=== PATIENT | male | born 1940 ===

== ENCOUNTER 2017-09-29 08:00 | Inpatient (IN) | payer MEDICARE, MEDICAID ==
[2017-08-02 15:02] VITALS: BMI 27.4
[2017-10-06] MEDS ORDERED: Propofol 10 mg/ml Inj (20 ML) ONE (07:48)
[2017-10-06] MEDS ORDERED: Midazolam 2 MG/2 ML VIAL ONE (07:49)
[2017-10-06] MEDS ORDERED: Lactated Ringer's 1,000 ML IV ONE ×5 (07:55→12:30)
[2017-10-06] MEDS: Bupivacaine-Epi 0.25%-1:200,000 PF Inj ONE ×2 (07:55→08:43)
[2017-10-06] MEDS: Lidocaine 1% Inj (20ml) ONE ×2 (07:55→08:44)
[2017-10-06] MEDS: ceFAZolin IV 2 gm in Dextrose 2 GM/50 ML BAG IVPB ONE ×2 (08:10→08:37)
[2017-10-06] MEDS: metroNIDAZOLE IV 500 mg/100 ml 500 MG/100 ML BAG ONE ×2 (08:20→08:43)
[2017-10-06] MEDS ORDERED: Rocuronium 10 mg/ml (5 ml) ONE (10:13)
[2017-10-06] MEDS ORDERED: Neostigmine Methylsulfate 3mg/3ml Syringe IV ONE (10:13)
[2017-10-06] MEDS ORDERED: Succinylcholine Chloride 20 mg/ml Syr (5 ml) IV ONE (10:13)
--- NOTE | 2017-10-06 13:10 | RAD ---
HISTORY: RULE OUT PNEUMOTHORAX COMPARISON: 08/02/2017 FINDINGS: LUNGS: There is no acute infiltrate. There is band like density at the left base which may reflect atelectasis. PLEURA: There is no definite pneumothorax. However, there is air seen superimposed upon both the right and left cardiac silhouettes. Atypical pneumothorax cannot be entirely excluded. Possible small left pleural effusion. Subcutaneous emphysema seen over left lateral chest wall. Subcutaneous emphysema is seen about the neck bilaterally. CARDIOVASCULAR: There is an endotracheal tube positioned 3.4 cm above the tracheal stephen. A nasogastric tube extends to the left upper quadrant of the abdomen. OSSEOUS STRUCTURES: No significant abnormalities. VISUALIZED UPPER ABDOMEN: Normal. OTHER FINDINGS: None. IMPRESSION: Cannot rule out pneumothorax in an atypical location superimposed upon the right and left cardiac silhouette. No apical pneumothorax. Subcutaneous emphysema over left lateral chest wall and about the neck bilaterally. ET tube and NG tube appear appropriately positioned. Findings were discussed with patient's nurse, SARAH Back, at 1:08 p.m. on 10/06/2017.
[2017-10-06] MEDS ORDERED: HYDROmorphone 1 mg/ml ISec IVP PRN (14:37)
--- NOTE | 2017-10-06 16:23 | PCM.SURG1 ---
Surgeon's Initial Post Op Note - Surgeon's Notes Surgeon: MD Thuy. MD Isi Business Machine Operator: PREMA Jones Type of Anesthesia: General Endo Pre-Operative Diagnosis: Hiatal hernia Operative Findings: Hiatal hernia Post-Operative Diagnosis: Hiatal hernia Operation Performed: Robotic hiatal hernia repair with alloderm. Gastropexy. Tony Fundoplication. Specimen/Specimens Removed: Hernia sac Estimated Blood Loss: EBL {In ML}: 100 Blood Products Given: N/A Drains Used: Marcus Post-Op Condition: Good Date of Surgery/Procedure: 10/06/17 Time of Surgery/Procedure: 07:55
[2017-10-06] MEDS ORDERED: Acetaminophen IV 1,000 MG in Premixed IV 1 EA IV PRN (17:30)
[2017-10-07 06:41] LABS: BASO % 0.1 % (0.0-2.0); HEMATOCRIT 30.1 % (35.0-51.0); LYMPH # 0.8 K/uL (1.0-4.3); LYMPH % 7.9 % (20.0-40.0); MEAN CELL VOLUME 86.7 fL (80.0-94.0); MEAN CORPUSCULAR HEMOGLOBIN 28.3 pg (27.0-31.0); MEAN CORPUSCULAR HGB CONC 32.7 g/dL (33.0-37.0); MEAN PLATELET VOLUME 11.1 fL (7.2-11.7); MONO # 0.3 K/uL (0.0-0.8); PLATELET COUNT 126 K/uL (130-400); RED CELL DISTRIBUTION WIDTH 14.6 % (11.5-14.5); WHITE BLOOD COUNT 10.5 K/uL (4.8-10.8)
[2017-10-07 08:12] LABS: ALB/GLOB RATIO 1.2 (1.0-2.1); ALKALINE PHOSPHATASE 43 U/L (38-126); ALT/SGPT 454 U/L (21-72); AST/SGOT 526 U/L (17-59); BLOOD UREA NITROGEN 14 mg/dL (9-20); CALCIUM 7.6 mg/dl (8.6-10.4); CARBON DIOXIDE 26 mmol/L (22-30); CHLORIDE 100 mmol/L (98-107); GFR AFRICAN-AMERICAN > 60; GLUCOSE,RANDOM 120 mg/dL (75-110); POTASSIUM 3.9 mmol/L (3.6-5.2); SODIUM 136 mmol/L (132-148); TOTAL PROTEIN 5.4 g/dL (6.3-8.3)
[2017-10-07 08:51] LABS: NEUTROPHIL 87 % (50-75); TOTAL CELLS COUNTED 100
[2017-10-07] MEDS: Enoxaparin 40 mg Syringe SC SCH (09:28)
[2017-10-07] MEDS: Lactated Ringer's 1,000 ML IV SCH ×4 (09:33→22:02)
--- NOTE | 2017-10-07 11:59 | CP.PCM.PN ---
<Sylvain Christine - Last Filed: 10/07/17 13:22> Subjective - Date & Time of Evaluation Date of Evaluation: 10/07/17 Time of Evaluation: 06:55 - Subjective Subjective: General Surgery Pt S&E, NAEO. Having eructations. Minimal pain, controlled with meds. Good UOP. Objective - Vital Signs/Intake and Output Vital Signs (last 24 hours): Temp Pulse Resp BP Pulse Ox 98.6 F 72 20 125/68 95 10/07/17 08:09 10/07/17 08:09 10/07/17 08:09 10/07/17 08:09 10/07/17 08:09 Intake and Output: 10/07/17 10/07/17 06:59 18:59 Intake Total 990 Output Total 1455 Balance -465 - Medications Medications: Current Medications Enoxaparin Sodium (Lovenox) 40 mg SC DAILY [facility] Last Admin: 10/07/17 09:28 Dose: 40 mg Famotidine (Pepcid) 20 mg IVP Q12 [facility] Last Admin: 10/07/17 09:28 Dose: 20 mg Hydromorphone HCl (Dilaudid) 1 mg IVP Q4H PRN PRN Reason: Pain, moderate (4-7) Lactated Ringer's (Lactated Ringer's) 1,000 mls @ 110 mls/hr IV .Q9H6M [facility] Last Admin: 10/07/17 09:37 Dose: Not Given Acetaminophen 1,000 mg/ (Miscellaneous) 100 mls @ 400 mls/hr IV Q6 PRN PRN Reason: Pain, moderate (4-7) Last Admin: 10/06/17 20:00 Dose: 100 mls - Labs Labs: 10/07/17 06:35 10/07/17 06:35 - Constitutional Appears: Non-toxic, No Acute Distress - Head Exam Head Exam: ATRAUMATIC, NORMOCEPHALIC - Eye Exam Eye Exam: EOMI. absent: Scleral icterus - Respiratory Exam Respiratory Exam: NORMAL BREATHING PATTERN. absent: Respiratory Distress - GI/Abdominal Exam GI & Abdominal Exam: Soft, Tenderness (mild at incisions). absent: Distended, Firm, Guarding, Rigid Additional comments: Drain with serosang drainage, 20cc since surgery - Neurological Exam Neurological Exam: Alert, Awake - Skin Skin Exam: Dry, Warm Assessment and Plan - Assessment and Plan (Free Text) Assessment: 77M s/p Robotic hiatal hernia repair with alloderm, Gastropexy, Tony Fundoplication POD#1 Plan: Will get gastrograffin esophageal study tomorrow. Encouraged ambulation and IS use. Ok to have Ice chips Can disconnect NG tube to let pt ambulate D/W Dr. Thuy Christine PGY4 <Richie Daley - Last Filed: 10/08/17 23:27> Objective - Vital Signs/Intake and Output Vital Signs (last 24 hours): Temp Pulse Resp BP Pulse Ox 98 F 92 H 20 169/82 H 99 10/08/17 15:00 10/08/17 16:00 10/08/17 15:00 10/08/17 15:00 10/08/17 15:00 Intake and Output: 10/08/17 10/09/17 18:59 06:59 Intake Total 150 340 Output Total 25 20 Balance 125 320 - Medications Medications: Current Medications Enoxaparin Sodium (Lovenox) 40 mg SC DAILY [facility] Last Admin: 10/08/17 09:52 Dose: 40 mg Famotidine (Pepcid) 20 mg IVP Q12 [facility] Last Admin: 10/08/17 21:40 Dose: 20 mg Hydromorphone HCl (Dilaudid) 1 mg IVP Q4H PRN PRN Reason: Pain, moderate (4-7) Lactated Ringer's (Lactated Ringer's) 1,000 mls @ 110 mls/hr IV .Q9H6M [facility] Last Admin: 10/08/17 21:41 Dose: 110 mls/hr Acetaminophen 1,000 mg/ (Miscellaneous) 100 mls @ 400 mls/hr IV Q6 PRN PRN Reason: Pain, moderate (4-7) Last Admin: 10/06/17 20:00 Dose: 100 mls - Labs Labs: 10/07/17 06:35 10/07/17 06:35 Attending/Attestation - Attestation I have personally seen and examined this patient.: Yes I have fully participated in the care of the patient.: Yes I have reviewed all pertinent clinical information, including history, physical exam and plan: Yes Notes (Text): Pt was seen and examined at bedside Agree with above note and assessment Pt is improving clinically Upper GI series in am Sips of clears. Plan d/w pt in detail Risk and benefit explained in detail.
[2017-10-07] MEDS: ceFAZolin IV 1 gm in Dextrose 1 GM/50 ML BAG IVPB SCH (17:45)
[2017-10-08] MEDS: ceFAZolin IV 1 gm in Dextrose 1 GM/50 ML BAG IVPB SCH (00:29)
[2017-10-08] MEDS ORDERED: Albuterol-Ipratrop 3 mg / 0.5 (3 ml) UD INH STA (01:48)
--- NOTE | 2017-10-08 03:20 | RAD ---
EXAM: XR Chest, 1 View EXAM DATE/TIME: 10/08/2017 1:52 AM CLINICAL HISTORY: 77 years old, male; Signs and symptoms; Shortness of breath TECHNIQUE: Frontal view of the chest. COMPARISON: No relevant prior studies available. FINDINGS: The endotracheal tube and feeding tube seen on prior study are no longer present. Again seen is subcutaneous emphysema in the lower neck, however it has decreased significantly since prior. The subcutaneous emphysema seen in the left chest wall on prior has essentially resolved. Mediastinal cardiac silhouette appears similar to prior. There is new right infrahilar and right lower lung opacity likely representing a combination of infiltrate, atelectasis, and/or effusion. Prominence of the left perihilar vasculature likely partially due to crowding from poor inspiratory effort. IMPRESSION: Decreased subcutaneous emphysema as discussed above. New right lower lung opacity.
--- NOTE | 2017-10-08 04:32 | OP ---
PROCEDURE DATE: 10/06/2017 PREOPERATIVE DIAGNOSIS: Grade 3 hiatal hernia. POSTOPERATIVE DIAGNOSIS: Grade 3 hiatal hernia. PROCEDURES DONE: 1. Robotic hiatal hernia repair with a mesh. 2. Robotic Tony fundoplication. 3. Robotic gastropexy. SURGEONS: 1. Edward Snowden MD 2. Richie Daley MD INTELLIGENCE MANAGER: NEMO Murillo TYPE OF ANESTHESIA: General endotracheal tube anesthesia. ESTIMATED BLOOD LOSS: Around 100 mL. DRAINS: None. PATHOLOGY: Hernial sac and content was sent to the Pathology. COMPLICATIONS: None. INTRAOPERATIVE FINDINGS: The patient had large grade 3 hiatal hernia containing two-third of the stomach. DESCRIPTION OF PROCEDURE: On intraoperative steps, this is a 77-year-old male who was previously diagnosed with a gastric volvulus and large hiatal hernia, and the patient was consented for hiatal hernia repair with the mesh, robotic assisted, brought to the OR, placed supine on the operating table. After induction of the anesthesia, abdomen was prepped and draped in usual sterile fashion. The left upper quadrant incision was made after using the Visiport technique. Peritoneal cavity was entered. Pneumo was created. Another four 8-mm port was placed in the midline 12 cm below the suprasternal and another two 8-mm port was placed in the right mid and right flank as well as the left mid and the left flank area; and after the robot was brought in, patient was placed in steep reverse Trendelenburg position, and the camera arm as well as arm #1 and arm #2 was docked. Through the right flank port, the grasper was introduced, and liver was retracted through the grasper. First, the stomach was reduced back into the peritoneal cavity. The hernial sac was dissected and dissected all the way up to the mediastinal structures, and the sac was reduced back and excised, and it was sent off the table for pathology, and now the esophagus was identified and GE junction was identified. The anterior and the posterior vagus was identified and the Kent drain was passed through the esophagus. The right joseph as well as the left joseph dissection was done and after that the most inferior part of the right and left joseph confluence was also properly dissected, and after that the GE junction was brought back into the peritoneal cavity, and there was good intraperitoneal esophagus length of approximately 2.5 cm and after that the joseph was sutured with 2-0 Vicryl V-Loc suture in a two layer, and an AlloDerm was placed and AlloDerm was sutured to the hernial repair with multiple sutures, and after proper hernial repair, the fundoplication was done. The fundus was partially mobilized and the fundus was brought posteriorly behind the esophagus, and Tony fundoplication wrap was created after placement of 56 syriac bougie and with 2-0 Vicryl in multiple sutures, and there was no evidence of tension on the esophagus, and there was floppy wrap, and after that the fundus of the stomach was sutured to the diaphragm with multiple sutures to prevent future gastric volvulus and after the proper gastropexy, the 19-Czech Marcus drain was placed, and all the port was taken out under vision. The suction and irrigation of the perihepatic area as well as hernial sac as well as the left upper quadrant was done, and all the fluid was suctioned out, and after proper hemostasis all instruments were taken out. All the port was taken out under vision. The robot was undocked and pneumo was deflated. The midline port was placed in two layers, the fascia with 0-Vicryl and the skin with 4-0 Monocryl at all the port sites, and dry sterile dressing was applied. The patient tolerated the procedure well. Count of instrument and gauze was correct. There was no apparent complication. The patient was extubated in OR, sent to the Postanesthesia Care Unit in stable condition. Richie Daley MD MTDSandy
[2017-10-08] MEDS: Enoxaparin 40 mg Syringe SC SCH (09:52)
--- NOTE | 2017-10-08 10:22 | CP.PCM.PN ---
Subjective - Date & Time of Evaluation Date of Evaluation: 10/08/17 Time of Evaluation: 06:45 - Subjective Subjective: General Surgery Dr. Daley Objective - Vital Signs/Intake and Output Vital Signs (last 24 hours): Temp Pulse Resp BP Pulse Ox 99.6 F 84 20 164/76 H 98 10/08/17 08:29 10/08/17 08:29 10/08/17 08:29 10/08/17 08:29 10/08/17 08:29 Intake and Output: 10/08/17 10/08/17 06:59 18:59 Intake Total 1650 Output Total 440 Balance 1210 - Medications Medications: Current Medications Enoxaparin Sodium (Lovenox) 40 mg SC DAILY [facility] Last Admin: 10/08/17 09:52 Dose: 40 mg Famotidine (Pepcid) 20 mg IVP Q12 [facility] Last Admin: 10/08/17 09:53 Dose: 20 mg Hydromorphone HCl (Dilaudid) 1 mg IVP Q4H PRN PRN Reason: Pain, moderate (4-7) Lactated Ringer's (Lactated Ringer's) 1,000 mls @ 110 mls/hr IV .Q9H6M [facility] Last Admin: 10/07/17 22:02 Dose: 110 mls/hr Acetaminophen 1,000 mg/ (Miscellaneous) 100 mls @ 400 mls/hr IV Q6 PRN PRN Reason: Pain, moderate (4-7) Last Admin: 10/06/17 20:00 Dose: 100 mls - Labs Labs: 10/07/17 06:35 10/07/17 06:35
[2017-10-08] MEDS ORDERED: Iohexol 240 200 ML ONE (15:54)
--- NOTE | 2017-10-08 16:20 | CP.PCM.PN ---
<Lex Bey - Last Filed: 10/08/17 16:17> Subjective - Date & Time of Evaluation Date of Evaluation: 10/08/17 Time of Evaluation: 06:55 - Subjective Subjective: Gen Sx: Dr Daley Pt S&E. Overnight pt pulled out his NGT and all IV lines, pt claiming he was sick of being here and needed to leave. At time of evaluation pt denies any pain, n/v, f/c, or sob. He is OOB and ambulating around. Vitals checked and demonstrated hypoxia @ 85%. Pt placed on ventimask @40%@8L. O2 sats up to 95% . Pt for upper GI series today. Objective - Vital Signs/Intake and Output Vital Signs (last 24 hours): Temp Pulse Resp BP Pulse Ox 99.6 F 84 20 164/76 H 98 10/08/17 08:29 10/08/17 08:29 10/08/17 08:29 10/08/17 08:29 10/08/17 08:29 Intake and Output: 10/08/17 10/08/17 06:59 18:59 Intake Total 1650 Output Total 440 Balance 1210 - Medications Medications: Current Medications Enoxaparin Sodium (Lovenox) 40 mg SC DAILY [facility] Last Admin: 10/08/17 09:52 Dose: 40 mg Famotidine (Pepcid) 20 mg IVP Q12 [facility] Last Admin: 10/08/17 09:53 Dose: 20 mg Hydromorphone HCl (Dilaudid) 1 mg IVP Q4H PRN PRN Reason: Pain, moderate (4-7) Lactated Ringer's (Lactated Ringer's) 1,000 mls @ 110 mls/hr IV .Q9H6M [facility] Last Admin: 10/07/17 22:02 Dose: 110 mls/hr Acetaminophen 1,000 mg/ (Miscellaneous) 100 mls @ 400 mls/hr IV Q6 PRN PRN Reason: Pain, moderate (4-7) Last Admin: 10/06/17 20:00 Dose: 100 mls - Labs Labs: 10/07/17 06:35 10/07/17 06:35 - Constitutional Appears: Non-toxic, No Acute Distress - Head Exam Head Exam: NORMAL INSPECTION - Eye Exam Eye Exam: Normal appearance - ENT Exam ENT Exam: Mucous Membranes Dry - Respiratory Exam Respiratory Exam: absent: Accessory Muscle Use, Respiratory Distress - Cardiovascular Exam Cardiovascular Exam: REGULAR RHYTHM. absent: Tachycardia - GI/Abdominal Exam GI & Abdominal Exam: Soft. absent: Distended, Tenderness Additional comments: dressing c/d/i - Neurological Exam Neurological Exam: Alert, Awake - Psychiatric Exam Psychiatric exam: Agitated - Skin Skin Exam: Normal Color, Warm Assessment and Plan - Assessment and Plan (Free Text) Assessment: 77M POD#2 s/p robotic hiatal hernia repair Plan: pt mentation improved on venti-mask - will cont PRN pulm consult with Dr Simpson for upper GI series today f/u labs d/w Dr Thyu Bey, PGY3 <Richie Daley B - Last Filed: 10/08/17 23:33> Objective - Vital Signs/Intake and Output Vital Signs (last 24 hours): Temp Pulse Resp BP Pulse Ox 98 F 92 H 20 169/82 H 99 10/08/17 15:00 10/08/17 16:00 10/08/17 15:00 10/08/17 15:00 10/08/17 15:00 Intake and Output: 10/08/17 10/09/17 18:59 06:59 Intake Total 150 340 Output Total 25 20 Balance 125 320 - Medications Medications: Current Medications Enoxaparin Sodium (Lovenox) 40 mg SC DAILY [facility] Last Admin: 10/08/17 09:52 Dose: 40 mg Famotidine (Pepcid) 20 mg IVP Q12 [facility] Last Admin: 10/08/17 21:40 Dose: 20 mg Hydromorphone HCl (Dilaudid) 1 mg IVP Q4H PRN PRN Reason: Pain, moderate (4-7) Lactated Ringer's (Lactated Ringer's) 1,000 mls @ 110 mls/hr IV .Q9H6M [facility] Last Admin: 10/08/17 21:41 Dose: 110 mls/hr Acetaminophen 1,000 mg/ (Miscellaneous) 100 mls @ 400 mls/hr IV Q6 PRN PRN Reason: Pain, moderate (4-7) Last Admin: 10/06/17 20:00 Dose: 100 mls - Labs Labs: 10/07/17 06:35 10/07/17 06:35 Attending/Attestation - Attestation I have personally seen and examined this patient.: Yes I have fully participated in the care of the patient.: Yes I have reviewed all pertinent clinical information, including history, physical exam and plan: Yes Notes (Text): Pt was seen and examined at bedside Agree with above note and assessment Pt with Hypoxia and Atelectasis s/p Hiatal hernia repair CXR Pulmonary consult Repeat labs in am c.w current mx Upper GI : reviewd Start full liquid diet Plan d/w pt in detail Risk and benefit explained in detail.
--- NOTE | 2017-10-08 16:36 | RAD ---
PROCEDURE: Limited upper GI series HISTORY: s/p hiatal hernia repairs COMPARISON: Not available TECHNIQUE: An upper GI series was performed utilizing water-soluble contrast material. Swallowing of Gastrografin was monitored fluoroscopically. FINDINGS: A corn husker machine operator radiograph of the abdomen demonstrates an unremarkable bowel gas pattern. A surgical drain is seen in the left upper quadrant of the abdomen. Postoperative changes are seen in the distal esophagus consistent with Tony fundoplication. A narrow 0 lumen is demonstrated. Contrast material flowed slowly through this narrow lumen into the stomach. There was no spillage of contrast material demonstrated into the peritoneal cavity. The stomach is otherwise significant for mild thickening of the mucosal folds, a nonspecific finding. Post examination overhead films demonstrate diffuse tertiary peristaltic contractions of the esophagus. IMPRESSION: No evidence of perforation. Status post Tony fundoplication. Tertiary esophageal peristalsis observed. Thickened gastric mucosal fold common nonspecific.
[2017-10-08] MEDS: Lactated Ringer's 1,000 ML IV SCH (21:41)
[2017-10-09] MEDS: Lactated Ringer's 1,000 ML IV SCH ×2 (05:41→06:54)
[2017-10-09 08:13] LABS: HEMATOCRIT 28.7 % (35.0-51.0); MEAN CELL VOLUME 86.3 fL (80.0-94.0); MEAN CORPUSCULAR HEMOGLOBIN 28.5 pg (27.0-31.0); MEAN PLATELET VOLUME 11.1 fL (7.2-11.7); RED CELL DISTRIBUTION WIDTH 14.8 % (11.5-14.5); WHITE BLOOD COUNT 8.6 K/uL (4.8-10.8)
[2017-10-09 08:56] LABS: ALB/GLOB RATIO 1.3 (1.0-2.1); ALKALINE PHOSPHATASE 55 U/L (38-126); ALT/SGPT 311 U/L (21-72); AST/SGOT 191 U/L (17-59); BILIRUBIN,TOTAL 1.4 mg/dL (0.2-1.3); BLOOD UREA NITROGEN 18 mg/dL (9-20); CALCIUM 7.8 mg/dl (8.6-10.4); CARBON DIOXIDE 24 mmol/L (22-30); CHLORIDE 105 mmol/L (98-107); GFR AFRICAN-AMERICAN > 60; GLUCOSE,RANDOM 106 mg/dL (75-110); POTASSIUM 3.7 mmol/L (3.6-5.2); SODIUM 139 mmol/L (132-148); TOTAL PROTEIN 5.9 g/dL (6.3-8.3)
[2017-10-09] MEDS: Enoxaparin 40 mg Syringe SC SCH (09:51)
[2017-10-09] MEDS ORDERED: Albuterol-Ipratrop 3 mg / 0.5 (3 ml) UD INH STA (09:58)
--- NOTE | 2017-10-09 10:28 | RAD ---
HISTORY: interval changes COMPARISON: Portable chest 10/08/2017. FINDINGS: LUNGS: Bilateral mid inferior pulmonary airspace disease is not excluded although a CHF pattern appears to dominate the exam. PLEURA: No no pneumothorax identified. Small bilateral pleural effusions are identified in the interval. CARDIOVASCULAR: Prominent cardiac silhouette and cephalization are again identified however overall pylorus pattern appears diminished in the interval representing improvement in CHF overall. Significant residual remains nevertheless. OSSEOUS STRUCTURES: No significant abnormalities. VISUALIZED UPPER ABDOMEN: Normal. OTHER FINDINGS: None. IMPRESSION: Mild improvement in active CHF. Underlying airspace disease not completely exclude the bilateral bases.
[2017-10-09] MEDS: Piperacill/Tazo 2.25gm in Dex 2.25 GM/50 ML BAG IVPB SCH ×3 (12:50→21:45)
[2017-10-09] MEDS ORDERED: Home Med 1 UNIT (Omeprazole [Omeprazole] 40 MG) PO SCH (18:00)
--- NOTE | 2017-10-10 01:27 | CP.PCM.PN ---
<GeremiasCm prescott - Last Filed: 10/10/17 01:24> Subjective - Date & Time of Evaluation Date of Evaluation: 10/09/17 Time of Evaluation: 08:25 - Subjective Subjective: General Surgery Progress note. Dr. Daley Pt seen and examined at bedside. Patient alert, mildly confused. Denies any F/ C. denies any CP/SOB. Denies any problems with breathing. Denies cough. No N/V/ D. No Abd pain. no complaints offered. Noted to have some audible expiratory wheezing. Objective - Vital Signs/Intake and Output Vital Signs (last 24 hours): Temp Pulse Resp BP Pulse Ox 98.5 F 88 18 146/85 99 10/09/17 17:28 10/10/17 01:15 10/09/17 17:28 10/09/17 17:28 10/09/17 17:28 Intake and Output: 10/09/17 10/10/17 18:59 06:59 Intake Total 1580 300 Output Total 1760 1900 Balance -180 -1600 - Medications Medications: Current Medications Atenolol (Tenormin) 50 mg PO BID [facility] Last Admin: 10/09/17 18:07 Dose: 50 mg Enoxaparin Sodium (Lovenox) 40 mg SC DAILY [facility] Last Admin: 10/09/17 09:51 Dose: 40 mg Famotidine (Pepcid) 20 mg IVP Q12 [facility] Last Admin: 10/09/17 21:40 Dose: 20 mg Hydromorphone HCl (Dilaudid) 1 mg IVP Q4H PRN PRN Reason: Pain, moderate (4-7) Acetaminophen 1,000 mg/ (Miscellaneous) 100 mls @ 400 mls/hr IV Q6 PRN PRN Reason: Pain, moderate (4-7) Last Admin: 10/06/17 20:00 Dose: 100 mls Piperacillin Sod/Tazobactam Sod (Zosyn 2.25 Gm Iv Premix) 2.25 gm in 50 mls @ 100 mls/hr IVPB Q6H [facility] Last Admin: 10/09/17 21:45 Dose: 100 mls/hr Levothyroxine Sodium (Synthroid) 25 mcg PO DAILY [facility] Losartan Potassium (Cozaar) 50 mg PO DAILY [facility] Montelukast Sodium (Singulair) 10 mg PO HS [facility] Last Admin: 10/09/17 21:39 Dose: 10 mg Rosuvastatin Calcium (Crestor) 10 mg PO [facility] Last Admin: 10/09/17 21:40 Dose: 10 mg - Labs Labs: 10/09/17 08:05 10/09/17 08:05 - Constitutional Appears: Non-toxic, No Acute Distress - Head Exam Head Exam: ATRAUMATIC, NORMAL INSPECTION, NORMOCEPHALIC - Respiratory Exam Respiratory Exam: Decreased Breath Sounds. absent: Accessory Muscle Use, Respiratory Distress Additional comments: mild expiratory wheezing noted - GI/Abdominal Exam GI & Abdominal Exam: Soft. absent: Firm, Guarding, Rigid, Tenderness Additional comments: dressing clean, dry and intact. CLAUDIO drain in place with minimal output - Extremities Exam Extremities Exam: Normal Inspection. absent: Calf Tenderness - Neurological Exam Neurological Exam: Alert, Awake - Skin Skin Exam: Normal Color, Warm Assessment and Plan - Assessment and Plan (Free Text) Assessment: 77yo M s/p Robotic hiatal hernia repair. POD3 - Upper GI series with gastrograffin - no leaks, contrast seen entering stomach - ICU consult due SOB - Resp treatments as needed - Lasix as needed - IV abx for possible lung infiltrate - Continue full liquid diet Further recs as per Dr. Thuy Archuleta PGY1 surgery pager: [phone] <Richie Daley - Last Filed: 10/10/17 22:37> Objective - Vital Signs/Intake and Output Vital Signs (last 24 hours): Temp Pulse Resp BP Pulse Ox 98.7 F 98 H 18 110/72 97 10/10/17 15:58 10/10/17 15:58 10/10/17 15:58 10/10/17 17:38 10/10/17 15:58 Intake and Output: 10/10/17 10/11/17 18:59 06:59 Intake Total 530 50 Output Total 250 2450 Balance 280 -2400 - Medications Medications: Current Medications Albuterol/Ipratropium (Duoneb 3 Mg/0.5 Mg (3 Ml) Ud) 3 ml INH RQ6 [facility] Last Admin: 10/10/17 19:29 Dose: 3 ml Albuterol/Ipratropium (Duoneb 3 Mg/0.5 Mg (3 Ml) Ud) 3 ml INH RQ2 PRN PRN Reason: Shortness of Breath Atenolol (Tenormin) 50 mg PO BID [facility] Last Admin: 10/10/17 17:39 Dose: 50 mg Enoxaparin Sodium (Lovenox) 40 mg SC DAILY [facility] Last Admin: 10/10/17 09:30 Dose: 40 mg Famotidine (Pepcid) 20 mg IVP Q12 [facility] Last Admin: 10/10/17 21:23 Dose: 20 mg Furosemide (Lasix) 40 mg IVP DAILY [facility] Last Admin: 10/10/17 17:38 Dose: 40 mg Hydromorphone HCl (Dilaudid) 1 mg IVP Q4H PRN PRN Reason: Pain, moderate (4-7) Acetaminophen 1,000 mg/ (Miscellaneous) 100 mls @ 400 mls/hr IV Q6 PRN PRN Reason: Pain, moderate (4-7) Last Admin: 10/06/17 20:00 Dose: 100 mls Piperacillin Sod/Tazobactam Sod (Zosyn 2.25 Gm Iv Premix) 2.25 gm in 50 mls @ 100 mls/hr IVPB Q6H [facility] Last Admin: 10/10/17 21:27 Dose: 100 mls/hr Levothyroxine Sodium (Synthroid) 25 mcg PO 0630 [facility] Last Admin: 10/10/17 06:33 Dose: 25 mcg Losartan Potassium (Cozaar) 50 mg PO DAILY [facility] Last Admin: 10/10/17 09:30 Dose: 50 mg Montelukast Sodium (Singulair) 10 mg PO [facility] Last Admin: 10/10/17 21:24 Dose: 10 mg Rosuvastatin Calcium (Crestor) 10 mg PO HS [facility] Last Admin: 10/10/17 21:24 Dose: 10 mg - Labs Labs: 10/10/17 07:24 10/10/17 07:24 Attending/Attestation - Attestation I have personally seen and examined this patient.: Yes I have fully participated in the care of the patient.: Yes I have reviewed all pertinent clinical information, including history, physical exam and plan: Yes Notes (Text): Pt was seen and examined at bedside Agree with above note and assessment Pt with Atelectasis and Hypoxia ICU consult Clear liquid diet. c.w current mx Plan d.w pt in detail. Risk and benefit explained in detail.
[2017-10-10] MEDS: Piperacill/Tazo 2.25gm in Dex 2.25 GM/50 ML BAG IVPB SCH ×4 (04:42→21:27)
[2017-10-10] MEDS: Levothyroxine 25 MCG TAB PO SCH (06:33)
[2017-10-10 07:28] LABS: HEMATOCRIT 30.2 % (35.0-51.0); MEAN CELL VOLUME 85.9 fL (80.0-94.0); MEAN CORPUSCULAR HGB CONC 32.6 g/dL (33.0-37.0); MEAN PLATELET VOLUME 9.6 fL (7.2-11.7); RED CELL DISTRIBUTION WIDTH 14.9 % (11.5-14.5); WHITE BLOOD COUNT 6.5 K/uL (4.8-10.8)
[2017-10-10 08:05] LABS: ALB/GLOB RATIO 0.9 (1.0-2.1); BILIRUBIN,TOTAL 1.4 mg/dL (0.2-1.3); CALCIUM 7.8 mg/dl (8.6-10.4); POTASSIUM 4.2 mmol/L (3.6-5.2); TOTAL PROTEIN 7.4 g/dL (6.3-8.3)
[2017-10-10] MEDS: Enoxaparin 40 mg Syringe SC SCH (09:30)
[2017-10-10] MEDS ORDERED: Pantoprazole 40 mg EC Tab PO SCH (10:00)
[2017-10-10] MEDS ORDERED: Albuterol-Ipratrop 3 mg / 0.5 (3 ml) UD INH PRN (10:05)
[2017-10-10] MEDS: Albuterol-Ipratrop 3 mg / 0.5 (3 ml) UD INH SCH ×2 (13:16→19:29)
--- NOTE | 2017-10-10 17:28 | CP.PCM.PN ---
<Hernan Brock - Last Filed: 10/10/17 17:29> Subjective - Date & Time of Evaluation Date of Evaluation: 10/10/17 Time of Evaluation: 17:27 - Subjective Subjective: General Surgery Progress Note for Dr. Daley This patient was seen and examined this Am at bedside no acute events overnght. he is moving his bowels saturing well. His drain output has been minimal he has no complaints at this time. Objective - Vital Signs/Intake and Output Vital Signs (last 24 hours): Temp Pulse Resp BP Pulse Ox 98.7 F 98 H 18 110/72 97 10/10/17 15:58 10/10/17 15:58 10/10/17 15:58 10/10/17 15:58 10/10/17 15:58 Intake and Output: 10/10/17 10/10/17 06:59 18:59 Intake Total 560 530 Output Total 2301 250 Balance -1741 280 - Medications Medications: Current Medications Albuterol/Ipratropium (Duoneb 3 Mg/0.5 Mg (3 Ml) Ud) 3 ml INH RQ6 [facility] Last Admin: 10/10/17 13:16 Dose: 3 ml Albuterol/Ipratropium (Duoneb 3 Mg/0.5 Mg (3 Ml) Ud) 3 ml INH RQ2 PRN PRN Reason: Shortness of Breath Atenolol (Tenormin) 50 mg PO BID [facility] Last Admin: 10/10/17 11:20 Dose: Not Given Enoxaparin Sodium (Lovenox) 40 mg SC DAILY [facility] Last Admin: 10/10/17 09:30 Dose: 40 mg Famotidine (Pepcid) 20 mg IVP Q12 [facility] Last Admin: 10/10/17 09:31 Dose: 20 mg Furosemide (Lasix) 40 mg IVP DAILY [facility] Hydromorphone HCl (Dilaudid) 1 mg IVP Q4H PRN PRN Reason: Pain, moderate (4-7) Acetaminophen 1,000 mg/ (Miscellaneous) 100 mls @ 400 mls/hr IV Q6 PRN PRN Reason: Pain, moderate (4-7) Last Admin: 10/06/17 20:00 Dose: 100 mls Piperacillin Sod/Tazobactam Sod (Zosyn 2.25 Gm Iv Premix) 2.25 gm in 50 mls @ 100 mls/hr IVPB Q6H [facility] Last Admin: 10/10/17 11:22 Dose: 100 mls/hr Levothyroxine Sodium (Synthroid) 25 mcg PO 0630 [facility] Last Admin: 10/10/17 06:33 Dose: 25 mcg Losartan Potassium (Cozaar) 50 mg PO DAILY [facility] Last Admin: 10/10/17 09:30 Dose: 50 mg Montelukast Sodium (Singulair) 10 mg PO HS [facility] Last Admin: 10/09/17 21:39 Dose: 10 mg Rosuvastatin Calcium (Crestor) 10 mg PO HS [facility] Last Admin: 10/09/17 21:40 Dose: 10 mg - Labs Labs: 10/10/17 07:24 10/10/17 07:24 - Constitutional Appears: Non-toxic, No Acute Distress - Head Exam Head Exam: ATRAUMATIC, NORMAL INSPECTION, NORMOCEPHALIC - Respiratory Exam Respiratory Exam: Decreased Breath Sounds. absent: Accessory Muscle Use, Respiratory Distress Additional comments: mild expiratory wheezing noted - GI/Abdominal Exam GI & Abdominal Exam: Soft. absent: Firm, Guarding, Rigid, Tenderness Additional comments: dressing clean, dry and intact. CLAUDIO drain in place with minimal output - Extremities Exam Extremities Exam: Normal Inspection. absent: Calf Tenderness - Neurological Exam Neurological Exam: Alert, Awake - Skin Skin Exam: Normal Color, Warm Assessment and Plan - Assessment and Plan (Free Text) Assessment: 77yo M s/p Robotic hiatal hernia repair. POD4 - D/C Flores - D/C drain - Serial exams - Monitor respiratory status - IV abx for possible lung infiltrate - Continue full liquid diet Further recs as per Dr. Thuy Brock PGY2 surgery pager: [phone] <Richie Daley - Last Filed: 10/10/17 22:44> Objective - Vital Signs/Intake and Output Vital Signs (last 24 hours): Temp Pulse Resp BP Pulse Ox 98.7 F 98 H 18 110/72 97 10/10/17 15:58 10/10/17 15:58 10/10/17 15:58 10/10/17 17:38 10/10/17 15:58 Intake and Output: 10/10/17 10/11/17 18:59 06:59 Intake Total 530 460 Output Total 250 2450 Balance 280 - Medications Medications: Current Medications Albuterol/Ipratropium (Duoneb 3 Mg/0.5 Mg (3 Ml) Ud) 3 ml INH RQ6 [facility] Last Admin: 10/10/17 19:29 Dose: 3 ml Albuterol/Ipratropium (Duoneb 3 Mg/0.5 Mg (3 Ml) Ud) 3 ml INH RQ2 PRN PRN Reason: Shortness of Breath Atenolol (Tenormin) 50 mg PO BID [facility] Last Admin: 10/10/17 17:39 Dose: 50 mg Enoxaparin Sodium (Lovenox) 40 mg SC DAILY [facility] Last Admin: 10/10/17 09:30 Dose: 40 mg Famotidine (Pepcid) 20 mg IVP Q12 [facility] Last Admin: 10/10/17 21:23 Dose: 20 mg Furosemide (Lasix) 40 mg IVP DAILY [facility] Last Admin: 10/10/17 17:38 Dose: 40 mg Hydromorphone HCl (Dilaudid) 1 mg IVP Q4H PRN PRN Reason: Pain, moderate (4-7) Acetaminophen 1,000 mg/ (Miscellaneous) 100 mls @ 400 mls/hr IV Q6 PRN PRN Reason: Pain, moderate (4-7) Last Admin: 10/06/17 20:00 Dose: 100 mls Piperacillin Sod/Tazobactam Sod (Zosyn 2.25 Gm Iv Premix) 2.25 gm in 50 mls @ 100 mls/hr IVPB Q6H [facility] Last Admin: 10/10/17 21:27 Dose: 100 mls/hr Levothyroxine Sodium (Synthroid) 25 mcg PO 0630 [facility] Last Admin: 10/10/17 06:33 Dose: 25 mcg Losartan Potassium (Cozaar) 50 mg PO DAILY [facility] Last Admin: 10/10/17 09:30 Dose: 50 mg Montelukast Sodium (Singulair) 10 mg PO HS [facility] Last Admin: 10/10/17 21:24 Dose: 10 mg Rosuvastatin Calcium (Crestor) 10 mg PO HS [facility] Last Admin: 10/10/17 21:24 Dose: 10 mg - Labs Labs: 10/10/17 07:24 10/10/17 07:24 Attending/Attestation - Attestation I have personally seen and examined this patient.: Yes I have fully participated in the care of the patient.: Yes I have reviewed all pertinent clinical information, including history, physical exam and plan: Yes Notes (Text): Pt was seen and examined at bedside Agree with above note and assessment Pt is improving clinically No wheezing today Pt had BM c.w Diuresis, Incentive spirometry c.w current mx Plan d.w pt in detail. Risk and benefit explained in detail.
[2017-10-11] MEDS: Albuterol-Ipratrop 3 mg / 0.5 (3 ml) UD INH SCH ×4 (02:11→19:36)
[2017-10-11] MEDS: Piperacill/Tazo 2.25gm in Dex 2.25 GM/50 ML BAG IVPB SCH ×3 (04:10→16:45)
[2017-10-11] MEDS: Levothyroxine 25 MCG TAB PO SCH (05:47)
[2017-10-11 06:39] LABS: HEMATOCRIT 31.4 % (35.0-51.0); MEAN CELL VOLUME 85.9 fL (80.0-94.0); MEAN CORPUSCULAR HEMOGLOBIN 28.2 pg (27.0-31.0); MEAN CORPUSCULAR HGB CONC 32.8 g/dL (33.0-37.0); MEAN PLATELET VOLUME 9.8 fL (7.2-11.7); WHITE BLOOD COUNT 7.5 K/uL (4.8-10.8)
[2017-10-11 06:46] LABS: ALB/GLOB RATIO 0.9 (1.0-2.1); BILIRUBIN,TOTAL 1.1 mg/dL (0.2-1.3); CALCIUM 7.8 mg/dl (8.6-10.4); POTASSIUM 3.6 mmol/L (3.6-5.2); TOTAL PROTEIN 7.3 g/dL (6.3-8.3)
--- NOTE | 2017-10-11 07:09 | CON ---
LOCATION: The patient is in room 653 A. HISTORY OF PRESENT ILLNESS: The patient was admitted to the hospital for hiatal hernia repair. The patient had surgery yesterday, uneventful. Today, the patient appears to be slightly congested and slightly altered. The patient is an [place] Immigrant. PHYSICAL EXAMINATION: GENERAL: The patient is awake, alert, oriented. VITAL SIGNS: Temperature 98.8, pulse is 94, blood pressure 120/80. HEENT: Within normal limits. NECK: Supple. CHEST: Symmetrical. Slightly decreased air entry. HEART: Regular. ABDOMEN: Soft. EXTREMITIES: No edema. LABORATORY DATA: Chest x-ray: Slight elevation of the left hemidiaphragm. ASSESSMENT: The patient suffers from hiatal hernia repair, asthma, atelectasis, mild left lung. At this point, we will do chest physical therapy, incentive spirometry, bronchodilators, O2. Buzz Simpson MD
--- NOTE | 2017-10-11 07:13 | PN ---
DATE: 10/10/2017 SUBJECTIVE: The patient is complaining of shortness of breath, congestion, on IV antibiotics, bronchodilator. Buzz Simpson MD
--- NOTE | 2017-10-11 09:10 | RAD ---
Chest x-ray single frontal view History: Atelectasis. Comparison: 10/09/2017 Findings: Moderate to severe venous congestion. Confluent consolidative changes in the right mid to lower lung zone as well as at the left lung base. Moderate right and small left pleural effusion. Biapical pleural thickening with upper lobe granulomatous changes. Right hilar prominence. Cardiomegaly. Degenerative changes in the spine and shoulders. Impression: Moderate to severe venous congestion. Confluent consolidative changes in the right mid to lower lung zone as well as at the left lung base. Moderate right and small left pleural effusion. Biapical pleural thickening with upper lobe granulomatous changes. Right hilar prominence. Cardiomegaly.
--- NOTE | 2017-10-11 15:20 | CP.PCM.PN ---
<GeremiasCm - Last Filed: 10/11/17 17:48> Subjective - Date & Time of Evaluation Date of Evaluation: 10/11/17 Time of Evaluation: 06:20 - Subjective Subjective: Surgery Progress note. Dr. Daley Pt seen and examined at bedside. No acute events overnight. Patient states that his breathing is improved. Denies N/V/D. No F/C. Denies CP/SOB. Objective - Vital Signs/Intake and Output Vital Signs (last 24 hours): Temp Pulse Resp BP Pulse Ox 98.3 F 59 L 18 117/72 98 10/11/17 07:35 10/11/17 07:35 10/11/17 07:35 10/11/17 10:35 10/11/17 07:35 Intake and Output: 10/11/17 10/11/17 06:59 18:59 Intake Total 460 600 Output Total 3450 300 Balance -2990 300 - Medications Medications: Current Medications Albuterol/Ipratropium (Duoneb 3 Mg/0.5 Mg (3 Ml) Ud) 3 ml INH RQ6 [facility] Last Admin: 10/11/17 13:41 Dose: 3 ml Albuterol/Ipratropium (Duoneb 3 Mg/0.5 Mg (3 Ml) Ud) 3 ml INH RQ2 PRN PRN Reason: Shortness of Breath Atenolol (Tenormin) 50 mg PO BID [facility] Last Admin: 10/11/17 10:36 Dose: 50 mg Enoxaparin Sodium (Lovenox) 40 mg SC DAILY [facility] Last Admin: 10/10/17 09:30 Dose: 40 mg Famotidine (Pepcid) 20 mg IVP Q12 [facility] Last Admin: 10/11/17 10:35 Dose: 20 mg Furosemide (Lasix) 40 mg IVP DAILY [facility] Last Admin: 10/11/17 10:35 Dose: 40 mg Hydromorphone HCl (Dilaudid) 1 mg IVP Q4H PRN PRN Reason: Pain, moderate (4-7) Acetaminophen 1,000 mg/ (Miscellaneous) 100 mls @ 400 mls/hr IV Q6 PRN PRN Reason: Pain, moderate (4-7) Last Admin: 10/06/17 20:00 Dose: 100 mls Piperacillin Sod/Tazobactam Sod (Zosyn 2.25 Gm Iv Premix) 2.25 gm in 50 mls @ 100 mls/hr IVPB Q6H [facility] Last Admin: 10/11/17 10:36 Dose: 100 mls/hr Levothyroxine Sodium (Synthroid) 25 mcg PO 0630 [facility] Last Admin: 10/11/17 05:47 Dose: 25 mcg Losartan Potassium (Cozaar) 50 mg PO DAILY [facility] Last Admin: 10/11/17 10:36 Dose: 50 mg Montelukast Sodium (Singulair) 10 mg PO HS [facility] Last Admin: 10/10/17 21:24 Dose: 10 mg Rosuvastatin Calcium (Crestor) 10 mg PO [facility] Last Admin: 10/10/17 21:24 Dose: 10 mg - Labs Labs: 10/11/17 06:24 10/11/17 06:24 - Constitutional Appears: Well, No Acute Distress - Head Exam Head Exam: ATRAUMATIC, NORMAL INSPECTION, NORMOCEPHALIC - Eye Exam Eye Exam: EOMI - ENT Exam ENT Exam: Mucous Membranes Moist - Respiratory Exam Respiratory Exam: Decreased Breath Sounds (bilateral bases), Clear to Ausculation Bilateral, NORMAL BREATHING PATTERN. absent: Accessory Muscle Use, Respiratory Distress - GI/Abdominal Exam GI & Abdominal Exam: Soft. absent: Distended, Firm, Guarding, Rigid, Rebound Additional comments: Bandage removed. Steristrips in place. No excessive drainage noted. - Extremities Exam Extremities Exam: Normal Inspection. absent: Calf Tenderness - Back Exam Back Exam: NORMAL INSPECTION - Neurological Exam Neurological Exam: Alert, Awake, Oriented x3 - Psychiatric Exam Psychiatric exam: Normal Affect, Normal Mood - Skin Skin Exam: Dry, Intact, Normal Color, Warm Assessment and Plan - Assessment and Plan (Free Text) Assessment: 77yo M s/p Robotic hiatal Hernia repair. POD 5 - Respiratory status improved this morning - Possible discharge home today - Will discuss plan with patient and family in detail - Resume home meds - Continue soft diet. - F/u with Dr. Daley in clinic in 7 days. Further recs as per Dr. Thuy Archuleta PGY1 surgery pager: [phone] <Richie Daley - Last Filed: 10/12/17 16:43> Objective - Vital Signs/Intake and Output Vital Signs (last 24 hours): Temp Pulse Resp BP Pulse Ox 98.5 F 65 20 110/73 99 10/11/17 15:25 10/11/17 16:00 10/11/17 15:25 10/11/17 15:25 10/11/17 15:25 - Labs Labs: 10/11/17 06:24 10/11/17 06:24 Attending/Attestation - Attestation I have personally seen and examined this patient.: Yes I have fully participated in the care of the patient.: Yes I have reviewed all pertinent clinical information, including history, physical exam and plan: Yes Notes (Text): Pt was seen and examined at bedside Agree with above note and assessment DC Home Reg diet f/u in office out pt.
[2017-10-11 15:52] VITALS: BP 110/73; RESP 20; TEMP 98.5; O2SAT 99
[2017-10-11] MEDS: Enoxaparin 40 mg Syringe SC SCH (15:52)
--- NOTE | 2017-10-11 17:58 | CP.PCM.DIS ---
Provider - Provider Date of Admission: 10/06/17 06:30 Attending physician: Richie Daley MD Consults: Pulm: [facility]: [facility] Time Spent in preparation of Discharge (in minutes): 45 Hospital Course - Lab Results Lab Results: Most Recent Lab Values WBC 7.5 K/uL (4.8-10.8) 10/11/17 06:24 RBC 3.66 Mil/uL (4.40-5.90) L 10/11/17 06:24 Hgb 10.3 g/dL (12.0-18.0) L 10/11/17 06:24 Hct 31.4 % (35.0-51.0) L 10/11/17 06:24 MCV 85.9 fL (80.0-94.0) 10/11/17 06:24 MCH 28.2 pg (27.0-31.0) 10/11/17 06:24 MCHC 32.8 g/dL (33.0-37.0) L 10/11/17 06:24 RDW 15.0 % (11.5-14.5) H 10/11/17 06:24 Plt Count 159 K/uL (130-400) 10/11/17 06:24 MPV 9.8 fL (7.2-11.7) 10/11/17 06:24 Neut % (Auto) 89.0 % (50.0-75.0) H 10/07/17 06:35 Lymph % (Auto) 7.9 % (20.0-40.0) L 10/07/17 06:35 Ritchie % (Auto) 3.0 % (0.0-10.0) 10/07/17 06:35 Eos % (Auto) 0.0 % (0.0-4.0) 10/07/17 06:35 Baso % (Auto) 0.1 % (0.0-2.0) 10/07/17 06:35 Neut # 9.4 K/uL (1.8-7.0) H 10/07/17 06:35 Lymph # 0.8 K/uL (1.0-4.3) L 10/07/17 06:35 Ritchie # 0.3 K/uL (0.0-0.8) 10/07/17 06:35 Eos # 0.0 K/uL (0.0-0.7) 10/07/17 06:35 Baso # 0.0 K/uL (0.0-0.2) 10/07/17 06:35 Neutrophils % (Manual) 87 % (50-75) H 10/07/17 06:35 Band Neutrophils % 2 % (0-2) 10/07/17 06:35 Lymphocytes % (Manual) 8 % (20-40) L 10/07/17 06:35 Monocytes % (Manual) 3 % (0-10) 10/07/17 06:35 Platelet Estimate Normal (NORMAL) 10/07/17 06:35 Polychromasia Slight 10/07/17 06:35 Hypochromasia (manual) Slight 10/07/17 06:35 Ovalocytes Slight 10/07/17 06:35 Sodium 138 mmol/L (132-148) 10/11/17 06:24 Potassium 3.6 mmol/L (3.6-5.2) 10/11/17 06:24 Chloride 100 mmol/L (98-107) 10/11/17 06:24 Carbon Dioxide 31 mmol/L (22-30) H 10/11/17 06:24 Anion Gap 11 (10-20) 10/11/17 06:24 BUN 15 mg/dL (9-20) 10/11/17 06:24 Creatinine 1.5 mg/dL (0.8-1.5) 10/11/17 06:24 Est GFR ( Amer) 55 10/11/17 06:24 Est GFR (Non-Af Amer) 46 10/11/17 06:24 Random Glucose 128 mg/dL (75-110) H 10/11/17 06:24 Calcium 7.8 mg/dl (8.6-10.4) L 10/11/17 06:24 Total Bilirubin 1.1 mg/dL (0.2-1.3) 10/11/17 06:24 AST 81 U/L (17-59) H D 10/11/17 06:24 ALT 191 U/L (21-72) H D 10/11/17 06:24 Alkaline Phosphatase 84 U/L (38-126) 10/11/17 06:24 NT-Pro-B Natriuret Pep 3270 pg/mL (0-900) H 10/09/17 13:01 Total Protein 7.3 g/dL (6.3-8.3) 10/11/17 06:24 Albumin 3.5 g/dL (3.5-5.0) 10/11/17 06:24 Globulin 3.8 gm/dL (2.2-3.9) 10/11/17 06:24 Albumin/Globulin Ratio 0.9 (1.0-2.1) L 10/11/17 06:24 Blood Type B POSITIVE 10/06/17 07:15 Antibody Screen Negative 10/06/17 07:15 - Hospital Course Hospital Course: 77yo M with hx of Hiatal hernia underwent Robotic hiatal hernia repair with alloderm. Gastropexy. Tony Fundoplication by Dr. Daley and Dr. Snowden. Post-operative hospital course complicated by hypoxia and delerium. Improved with BiPAP and breathing treatments. Patient stable for discharge today on POD 5. Will be sent home on Levaquin for possible new infiltrate on CXR. Patient to continue soft diet and resume all home meds. Discussed plan with patient and Nephew, Young Henry. Both understand and agree with plan. Discharge Exam - Head Exam Head Exam: ATRAUMATIC, NORMAL INSPECTION, NORMOCEPHALIC - Eye Exam Eye Exam: EOMI - ENT Exam ENT Exam: Mucous Membranes Moist - Respiratory Exam Respiratory Exam: NORMAL BREATHING PATTERN. absent: Accessory Muscle Use, Wheezes, Respiratory Distress - Cardiovascular Exam Cardiovascular Exam: RRR, +S1, +S2. absent: JVD - GI/Abdominal Exam GI & Abdominal Exam: Soft. absent: Distended, Firm, Guarding, Rebound, Tenderness Additional comments: Abdominal incisions intact with steris. Clean, dry and intact. - Extremities Exam Extremities exam: normal inspection - Neurological Exam Neurological exam: Alert, Oriented x3 - Psychiatric Exam Psychiatric exam: Normal Affect, Normal Mood - Skin Skin Exam: Dry, Intact, Normal Color, Warm Discharge Plan - Discharge Medications Prescriptions: levoFLOXacin [Levaquin] 750 mg PO DAILY #7 tab - Follow Up Plan Condition: GOOD Disposition: HOME/ ROUTINE Additional Instructions: 1. Follow up with Dr. Daley in clinic in 7 days. (Call for appointment) 2. You may shower. Allow for steri-strips to come off of their own. 3. Take antibiotics as prescribed, to completion 4. Resume home meds. 5. Continue with a soft, bland diet. Referrals: Richie Daley MD [Staff Provider] -
[2017-10-11 20:15] VITALS: PULSE 65
--- NOTE | 2017-10-12 07:38 | PN ---
DATE: The patient is looking better. The patient to have bed rest, supportive care. Bronchodilators to be continued. Buzz Simpson MD
== END 2017-10-11 21:30 | disposition home or self-care (01) | DRG 327 ==
LOC: C.9S 10-06 06:30 → C.6T 10-06 21:12
PROVIDERS: ADMIT Surgery Surgical Critical Care; ATTEND Surgery Surgical Critical Care
PROC: 0BUT4JZ Supplement Diaphragm with Synthetic Substitute, Percutaneous Endoscopic Approach (ICD-10-PCS; 2017-10-06)
PROC: 0DQ64ZZ Repair Stomach, Percutaneous Endoscopic Approach (ICD-10-PCS; 2017-10-06)
PROC: 0HR7XK3 Replacement of Abdomen Skin with Nonautologous Tissue Substitute, Full Thickness, External Approach (ICD-10-PCS; 2017-10-06)
PROC: 8E0W4CZ Robotic Assisted Procedure of Trunk Region, Percutaneous Endoscopic Approach (ICD-10-PCS; 2017-10-06)
PROC: 0W9F40Z Drainage of Abdominal Wall with Drainage Device, Percutaneous Endoscopic Approach (ICD-10-PCS; 2017-10-06)
PROC: 0DV44ZZ Restriction of Esophagogastric Junction, Percutaneous Endoscopic Approach (ICD-10-PCS; principal; 2017-10-06 07:45)
PROC: 5A09457 Assistance with Respiratory Ventilation, 24-96 Consecutive Hours, Continuous Positive Airway Pressure (ICD-10-PCS; 2017-10-09)
DX: K44.9 Diaphragmatic hernia without obstruction or gangrene (principal); J98.11 Atelectasis; F05 Delirium due to known physiological condition; J45.909 Unspecified asthma, uncomplicated; R91.8 Other nonspecific abnormal finding of lung field; T81.89XA Other complications of procedures, not elsewhere classified, initial encounter; R09.02 Hypoxemia